=== PATIENT | male | born 1945 | race Caucasian/White ===

== ENCOUNTER 2016-11-17 20:45 | Emergency (ER) | payer BC ==
[~2016-11-17] VITALS: Ht 177.8 cm; Wt 89.5 kg
[~2016-11-17 20:45] MED LIST: BENICAR 20MG TA20 MG; CARVEDILOL; COREG12.5 MG PO; GLIMEPIRIDE 4 MG; LEVEMIR FLEXPEN; METFORMIN TAB 500; MINOCYCLIN100 MG/CAP PO; PERCOCET 325 MG1 TA2 PO; PIOGLITAZONE; PRIL40 PO; SIMVASTATIN TAB 40M; SINGULAIR 110 MG/TAB PO; SYNTHROID0.05 MG/TA PO; ZOLPIDEM; ZYRTEC 10MG10 MG PO
[2016-11-17 21:21] LABS: COLLECTION METHOD CLEAN CATCH
[2016-11-17 21:26] LABS: MUCOUS Present /lpf; PH 5 (5-8); SQUAMOUS EPITHELIAL None Seen /hpf; URINE APPEARANCE Clear; URINE BACTERIA None Seen /hpf; URINE BILIRUBIN Negative (NEGATIVE); URINE BLOOD 1+ (NEGATIVE); URINE COLOR Yellow; URINE GLUCOSE 3+ (NEGATIVE); URINE KETONE Negative (NEGATIVE); URINE LEUKOCYTE ESTERASE Negative (NEGATIVE); URINE PROTEIN(semi-quant) Negative (NEGATIVE); URINE RBC 0-2 /hpf; URINE UROBILINOGEN Negative (NEGATIVE); URINE WBC 0-2 /hpf
[2016-11-17 21:57] LABS: BASO # 0.1 (0.0-0.2); BASO % 0.4 % (0.0-2.0); EOS # 0.1 (0.0-0.7); EOS % 0.9 % (0-4.0); GRAN # 10.7 (1.4-6.5); GRAN % 83.7 % (42.2-75.2); HEMATOCRIT 44.2 % (42.0-52.0); HEMOGLOBIN 14.7 g/dl (13.5-18.0); LYMPH % 7.7 % (20.0-51.0); MEAN CELL VOLUME 92 fl (80.0-100.0); MEAN CORPUSCULAR HEMOGLOBIN 31 pg (27.0-31.0); MEAN CORPUSCULAR HGB CONC 33 g/dl (33.0-37.0); MEAN PLATELET VOLUME 9.8 fl (7.4-10.4); MONO # 0.9 (0.1-0.6); MONO % 6.9 % (1.7-9.3); PLATELET COUNT 219 K/mm3 (130-400); WHITE BLOOD COUNT 12.8 K/mm3 (4.8-10.8)
[2016-11-17] MEDS ORDERED: GLUCOPHAGE XR500 M1 PO ×2 (22:03→22:04)
[2016-11-17] MEDS ORDERED: ZOCOR 40MG40 MG PO (22:03)
[2016-11-17] MEDS ORDERED: LEVEMIR FLEX100 U/ML SQ (22:05)
[2016-11-17] MEDS ORDERED: ACTOS 45MG45 MG/TAB PO (22:05)
[2016-11-17] MEDS ORDERED: COREG12.5 MG PO (22:06)
[2016-11-17] MEDS ORDERED: BENICAR 20MG TA20 MG PO (22:06)
[2016-11-17] MEDS ORDERED: VICTOZA6 MG/ML SQ (22:07)
[2016-11-17 22:08] LABS: ADJUSTED CALCIUM 9.6 mg/dL (8.4-10.2); ALBUMIN 3.9 gm/dL (3.5-5.0); BILIRUBIN,TOTAL 0.7 mg/dL (0.0-1.0); C-REACTIVE PROTEIN 0.7 mg/dL (0.0-0.9); CALCIUM 9.5 mg/dL (8.4-10.2); CREATININE, serum 0.96 mg/dL (0.66-1.25); POTASSIUM 4.6 mmol/L (3.4-5.0); TOTAL PROTEIN 6.8 gm/dL (6.4-8.2)
[2016-11-17] MEDS ORDERED: FISH OIL 1000MG1 CAP PO (22:08)
[2016-11-17] MEDS ORDERED: PROBIOTIC-MAJOR PO (22:08)
[2016-11-17 23:25] VITALS: TEMP 98.4
[2016-11-18] MEDS ORDERED: LEVAQUIN 750MG750 M1 PO (00:23)
[2016-11-18] MEDS ORDERED: ULTRAM 50MG TAB50 MG PO (00:23)
[2016-11-18 00:48] VITALS: BP 126/82; PULSE 115
== END 2016-11-18 00:48 | disposition home or self-care (01) ==
LOC: COL.ER 20:45
PROVIDERS: Emergency Medicine
DX: J18.9 Pneumonia, unspecified organism (principal); S20.212A Contusion of left front wall of thorax, initial encounter; W17.89XA Other fall from one level to another, initial encounter; I10 Essential (primary) hypertension; E11.9 Type 2 diabetes mellitus without complications; K21.9 Gastro-esophageal reflux disease without esophagitis; Z79.84 Long term (current) use of oral hypoglycemic drugs
CPT/HCPCS: A9284; J1885; J2405; J7030; Q9967

== ENCOUNTER 2022-01-21 09:30 | Outpatient (RCR) | payer BC ==
[~2022-01-21 09:30] MED LIST changes: +ACTOS 45MG45 MG/TAB PO; +BENICAR 20MG TA20 MG PO; +FISH OIL 1000MG1 CAP PO; +GLUCOPHAGE XR500 M1 PO; +LEVAQUIN 750MG750 M1 PO; +LEVEMIR FLEX100 U/ML SQ; +PROBIOTIC-MAJOR PO; +ULTRAM 50MG TAB50 MG PO; +VICTOZA6 MG/ML SQ; +ZOCOR 40MG40 MG PO
== END 2022-01-23 | disposition home or self-care (01) ==
LOC: WSST
DX: K21.9 Gastro-esophageal reflux disease without esophagitis (principal)

== ENCOUNTER 2022-01-21 09:35 | Outpatient (RCR) | payer BC | END 2022-01-23 | LOC: WSPT | DX: Z01.818 Encounter for other preprocedural examination (principal) ==

== ENCOUNTER 2023-02-19 10:00 | Outpatient (RCR) | payer MEDICARE, OTHER | END 2023-02-22 | disposition home or self-care (01) | LOC: PT.GENESIS | DX: M25.552 Pain in left hip (principal) ==

== ENCOUNTER → 2024-01-01 | Outpatient (CLI) | payer MEDICARE, OTHER | LOC: COL.RAD 07:18 | DX: K21.9 Gastro-esophageal reflux disease without esophagitis (principal); K22.70 Barrett's esophagus without dysplasia; R09.89 Other specified symptoms and signs involving the circulatory and respiratory systems; R49.0 Dysphonia; Z87.19 Personal history of other diseases of the digestive system | CPT/HCPCS: A9541-JZ ==